=== PATIENT | female | born 1955 | race Caucasian/White ===

== ENCOUNTER 2023-11-05 13:03 | Emergency (ER) | payer MEDICARE, OTHER ==
[~2023-11-05] VITALS: Ht 157.5 cm; Wt 64.9 kg
[2023-11-05 13:04] VITALS: TEMP 97.4; O2SAT 98
[2023-11-05] MEDS ORDERED: ACET500P3 PO (13:09)
[2023-11-05] MEDS ORDERED: WARF-20 PO (13:09)
[2023-11-05] MEDS ORDERED: METO1TAB87 PO (13:09)
[2023-11-05 15:04] VITALS: BP 118/57
== END 2023-11-05 15:05 | disposition home or self-care (01) ==
LOC: M ED 13:03
DX: M79.605 Pain in left leg (principal); Z91.040 Latex allergy status; Z79.1 Long term (current) use of non-steroidal anti-inflammatories (NSAID); Z79.899 Other long term (current) drug therapy